=== PATIENT | male | born 1990 | race Caucasian/White ===

== ENCOUNTER 2018-01-14 17:25 | Emergency (ER) | payer BC, OTHER ==
--- NOTE | 2018-01-14 22:58 | EDM.PDOC ---
ED HPI GENERAL MEDICAL PROBLEM - General Time Seen by Provider: 01/14/18 17:35 Source of Information: Reports: Patient History Limitations: Reports: No Limitations - History of Present Illness INITIAL COMMENTS - FREE TEXT/NARRATIVE: According to patient he was seen in the clinic on 01/12/18 for pink eye and he was started on polymyxin/trimithoprim eye drops for pink eye. Pt claims that since he has been using the eye drops, he has been having increased redness in the eyes and the eye has been swollen. also he can feel the medication draining into his nose and back of the throat and feels itchy and swollen in the throat. for past 24 hrs now he cannot tolerate light and has to wear dark glasses and he has blurry vision in both eye. He does claim that he might have rubbed his eyes as he has constant burning and itching in the eyes. Has eye discharge. ++ matting of the eyelids. No fever or chills. No nausea or vomiting. no headaches. No chest pain or wheezing. No other complaints. Onset Date: 01/11/18 Duration: Day(s): (4) Location: Reports: Other (eye) Severity: Moderate Improves with: Reports: None Worsens with: Reports: None Associated Symptoms: Reports: Nausea/Vomiting. Denies: Chest Pain, Cough, Diaphoresis, Fever/Chills, Rash, Shortness of Breath, Syncope, Weakness Bilateral Eye Pain Score (Numeric/FACES): 7 - Related Data Allergies Allergy/AdvReac Type Severity Reaction Status Date / Time Sulfa (Sulfonamide Allergy Intermediate Other Verified 01/14/18 18:37 Antibiotics) azocol Allergy Abdominal Uncoded 01/14/18 18:01 Pain ED ROS GENERAL - Review of Systems Review Of Systems: See Below Constitutional: Denies: Fever, Chills, Malaise, Weakness HEENT: Reports: Eye Discharge, Eye Pain, Vision Change. Denies: Rhinitis, Throat Pain, Throat Swelling Respiratory: Denies: Shortness of Breath, Cough, Sputum Cardiovascular: Denies: Chest Pain, Lightheadedness GI/Abdominal: Denies: Abdominal Pain, Nausea, Vomiting : Denies: Dysuria, Frequency Musculoskeletal: Denies: Joint Pain, Joint Swelling Skin: Denies: Bruising, Pruritis, Rash Neurological: Denies: Confusion, Dizziness, Headache ED EXAM, GENERAL - Physical Exam Exam: See Below Exam Limited By: No Limitations General Appearance: Alert, WD/WN, No Apparent Distress Eye Exam: Bilateral Eye: Conjunctival Injection (conjunctiva is erythematous and edematous), Corneal Abrasion (There is no corneal abrasion, on fluroscein exam ther is increased dye uptake in the circumcorneal junctions of the eye. there might be even uptake over the cornea), EOMI, PERRL, Other (Blepharospasm, ther is lid swelling. also very mild purulent drainage) Ear Exam: Bilateral Ear: Auricle Normal, Canal Normal, TM normal Nose: Normal Inspection, Normal Mucosa, No Blood Throat/Mouth: Normal Inspection, Normal Lips, Normal Teeth, Normal Gums, Normal Oropharynx, Normal Voice, No Airway Compromise Head: Atraumatic, Normocephalic Neck: Normal Inspection, Supple, Non-Tender, Full Range of Motion Respiratory/Chest: No Respiratory Distress, Lungs Clear, Normal Breath Sounds, No Accessory Muscle Use, Chest Non-Tender Cardiovascular: Normal Peripheral Pulses, Regular Rate, Rhythm, No Edema, No Gallop, No JVD, No Murmur, No Rub Course - Vital Signs Text/Narrative:: Pt has significant swelling and erythema of the eye lid and conjunctiva. Also on fluroscein exam there in uptake of dye over the cornea and circumcorneal junction. this might be related to worsening infection, or this could be sulfa allergy as patient claims he has throat itches every time he puts the present eye drop and also his eye symptoms have got worse.. I have advised him to stop present eye drops. Advised benadryl 25-50mg 3 times daily. I have started him on cipro 0.3% eye drops 2 drops every 2 hrs to the eyes. Avoid rubbing eyes. Wear dark glasses when outdoor. Pt advised to followup in the clinic tomorrow for recheck.Pt understands and agree with plan. Departure - Departure Time of Disposition: 18:30 Disposition: Home, Self-Care 01 Condition: Fair Clinical Impression: Conjunctivitis, Corneal edema of both eyes - Discharge Information Referrals: PCP,None [Primary Care Provider] - Additional Instructions: buy benadryl 25mg, take 50mg (two tabs) tonight and take as directed for throat/ nose discomfort. administer the antibiotic eye drops 2two drops to each eye every two hrs while awake and when you wake up at night.
== END 2018-01-14 18:30 | disposition home or self-care (01) ==
LOC: LB.ED 17:25
DX: H10.9 Unspecified conjunctivitis (principal); H18.20 Unspecified corneal edema; Z88.2 Allergy status to sulfonamides; Z88.8 Allergy status to other drugs, medicaments and biological substances
CPT/HCPCS: 99283